=== PATIENT | male | born 1995 | race Caucasian/White ===

== ENCOUNTER → 2021-11-28 | Outpatient (CLI) | payer OTHER | LOC: EXRD 10:37 | DX: M25.562 Pain in left knee (principal); M25.561 Pain in right knee; M79.669 Pain in unspecified lower leg | CPT/HCPCS: 73564 ==

== ENCOUNTER → 2021-12-06 | Outpatient (CLI) | payer OTHER | LOC: EXRD 14:22 | DX: M25.562 Pain in left knee (principal); M25.561 Pain in right knee | CPT/HCPCS: 93970 ==

== ENCOUNTER → 2021-12-07 | Outpatient (CLI) | payer OTHER | LOC: EXRD 10:42 | DX: S99.921A Unspecified injury of right foot, initial encounter (principal); X58.XXXA Exposure to other specified factors, initial encounter | CPT/HCPCS: 73620 ==